=== PATIENT | male | born 1950 | race Caucasian/White ===

== ENCOUNTER 2017-12-05 13:22 | Emergency (ER) | payer SELFPAY ==
[~2017-12-05] VITALS: Ht 175.3 cm; Wt 85.0 kg
[2017-12-05 13:24] VITALS: BP 0/0
[2017-12-05] MEDS ORDERED: CALCIUM CHLORIDE 1GM/10ML SYR IV ONE (13:31)
[2017-12-05] MEDS ORDERED: EPINEPHRINE 0.1MG/ML (1:10,000) 10ML SYR ONE ×2 (13:31→13:38)
[2017-12-05] MEDS ORDERED: SODIUM BICARBONATE 7.5% 0.9 MEQ/ML 50ML SYR IV ONE (13:31)
== END 2017-12-05 15:59 | disposition expired ==
LOC: ER 13:57
DX: I46.9 Cardiac arrest, cause unspecified (principal); I10 Essential (primary) hypertension
CPT/HCPCS: 31500; 36556; 82962; 92950; 99285; J3490